=== PATIENT | female | born 1955 | race Caucasian/White ===

== ENCOUNTER 2019-02-27 15:25 | Emergency (ER) | payer MEDICAID ==
[~2019-02-27] VITALS: Ht 160 cm; Wt 109.8 kg
--- NOTE | 2019-02-27 15:35 | NUR ---
PATIENT [id number], C/O R FOOT, KNEE, AND CHEST WALL TENDERNESS, S/P TRIPPED AND FALL AT [address], -KO. ON ROOM AIR, BREATHING EVENLY AND UNLABORED, CONNECTED TO THE MONITOR AND PULSE OX. KEPT COMFORTABLE, WILL CONTINUE TO MONITOR ACCORDINGLY.
[2019-02-27] MEDS ORDERED: IBUPROFEN 600 MG TABLET PO ONE ×2 (15:44→16:00)
--- NOTE | 2019-02-27 16:50 | NUR ---
Patient discharged to home in stable condition. Written and verbal after care instructions given. Patient verbalizes understanding of instruction.
[2019-02-27 16:51] VITALS: BP 138/82
== END 2019-02-27 16:52 | disposition home or self-care (01) ==
LOC: ER 15:30
DX: M54.12 Radiculopathy, cervical region (principal); I10 Essential (primary) hypertension; M54.5 Low back pain; G89.29 Other chronic pain; W01.0XXA Fall on same level from slipping, tripping and stumbling without subsequent striking against object, initial encounter; Y93.89 Activity, other specified; Y92.481 Parking lot as the place of occurrence of the external cause; Y99.8 Other external cause status
CPT/HCPCS: 71045-TC; 72125-TC

== ENCOUNTER 2022-07-23 15:13 | Inpatient (IN) | payer MEDICAID, OTHER ==
[~2022-07-23] VITALS: Ht 167.6 cm; Wt 74.8 kg
[2022-07-23 15:59] LABS: BASOPHILS % (AUTO) 0.4 % (0.0-2.0); EOSINOPHILS % (AUTO) 1.5 % (0.0-6.0); HEMATOCRIT 41 % (33-45); HEMOGLOBIN 13.7 g/dL (11.5-14.8); LYMPHOCYTES # (AUTO) 1.5 K/uL (0.8-4.8); LYMPHOCYTES % (AUTO) 16.5 % (20.0-44.0); MEAN CORPUSCULAR HGB CONC 33 g/dl (31.0-36.0); MEAN CORPUSCULAR VOLUME 84 fL (82-100); MONOCYTES # (AUTO) 0.5 K/uL (0.1-1.30); MONOCYTES % (AUTO) 5.4 % (2.0-12.0); NEUTROPHILS % (AUTO) 76.2 % (43.0-81.0); PLATELET COUNT (AUTO) 280 K/uL (150-450); RED BLOOD CELL COUNT(AUTO) 4.88 MIL/uL (4.0-5.2); WHITE BLOOD COUNT (AUTO) 9.1 K/uL (4.3-11.0)
[2022-07-23 16:34] LABS: CALCIUM, SERUM 9.3 mg/dL (8.5-10.1); CARBON DIOXIDE 29 mmol/L (21-32); CHLORIDE 105 mmol/L (98-107); GLUCOSE 112 mg/dL (74-106); POTASSIUM 3.6 mmol/L (3.5-5.1); SODIUM SERUM 141 mmol/L (136-145); UREA NITROGEN, BLOOD 23 mg/dL (7-18)
[2022-07-23] MEDS ORDERED: DILTIAZEM HCL 50 MG IV IV ONE (17:30)
[2022-07-23] MEDS ORDERED: ASCO-352 PO (17:49)
[2022-07-23] MEDS ORDERED: ATOR10TA PO (17:49)
[2022-07-23] MEDS ORDERED: CYAN-51 PO (17:49)
[2022-07-23] MEDS ORDERED: METO-357 PO (17:49)
[2022-07-23] MEDS ORDERED: ESOM20CA37 PO (17:49)
[2022-07-23] MEDS ORDERED: CHOL100062 PO (17:49)
[2022-07-23] MEDS ORDERED: DOCU250C14 PO (17:49)
[2022-07-23] MEDS ORDERED: ASPI-1420 PO (17:49)
[2022-07-23] MEDS ORDERED: AMLO-213 PO (17:49)
[2022-07-23] MEDS ORDERED: LOSA1TAB42 PO (17:49)
[2022-07-23] MEDS ORDERED: DILTIAZEM HCL 50 MG IV ONE (17:52)
[2022-07-23] MEDS ORDERED: ASPIRIN 81 MG TAB.CHEW PO ONE (18:00)
[2022-07-23] MEDS ORDERED: FUROSEMIDE 40 MG/4 ML VIAL IV ONE (18:00)
[2022-07-23] MEDS ORDERED: DILTIAZEM HCL IV 125 MG in IV D5W 100 ML IV ONE (18:30)
[2022-07-23] MEDS ORDERED: ENOXAPARIN SODIUM 40 MG/0.4 ML DISP.SYRIN SQ SCH (22:30)
[2022-07-23] MEDS ORDERED: ONDANSETRON HCL/PF 4 MG/2 ML VIAL IVP PRN (22:30)
[2022-07-23] MEDS ORDERED: ZOLPIDEM TARTRATE 5 MG TABLET PO PRN (22:30)
[2022-07-23] MEDS ORDERED: Z GUARD REMEDY 4 OZ OINT TP PRN (22:30)
[2022-07-23] MEDS ORDERED: ACETAMINOPHEN 325 MG TABLET PO PRN (22:30)
[2022-07-23] MEDS ORDERED: MAG HYDROX/AL HYDROX/SIMETH 30 ML UDC PO PRN (22:30)
[2022-07-23] MEDS ORDERED: MAGNESIUM HYDROXIDE 30 ML UDC PO PRN (22:30)
[2022-07-23] MEDS ORDERED: HYDROCODONE/APAP 5/325MG TABLET PO PRN (22:30)
[2022-07-24] MEDS ORDERED: ENOXAPARIN SODIUM 40 MG/0.4 ML DISP.SYRIN SQ ONE (02:08)
[2022-07-24 04:08] LABS: BASOPHILS % (AUTO) 0.4 % (0.0-2.0); EOSINOPHILS % (AUTO) 2.4 % (0.0-6.0); HEMATOCRIT 39 % (33-45); HEMOGLOBIN 12.8 g/dL (11.5-14.8); LYMPHOCYTES # (AUTO) 2.8 K/uL (0.8-4.8); LYMPHOCYTES % (AUTO) 35.1 % (20.0-44.0); MEAN CORPUSCULAR HGB CONC 33 g/dl (31.0-36.0); MEAN CORPUSCULAR VOLUME 86 fL (82-100); MONOCYTES # (AUTO) 0.6 K/uL (0.1-1.30); NEUTROPHILS # (AUTO) 4.4 K/uL (1.8-8.9); NEUTROPHILS % (AUTO) 54.1 % (43.0-81.0); PLATELET COUNT (AUTO) 236 K/uL (150-450); RED BLOOD CELL COUNT(AUTO) 4.51 MIL/uL (4.0-5.2); WHITE BLOOD COUNT (AUTO) 8.1 K/uL (4.3-11.0)
[2022-07-24 04:17] LABS: CALCIUM, SERUM 9.3 mg/dL (8.5-10.1); CREATININE 1.1 mg/dL (0.6-1.3); MAGNESIUM 1.7 mg/dL (1.8-2.4); PHOSPHORUS 4.9 mg/dL (2.5-4.9); POTASSIUM 3.8 mmol/L (3.5-5.1)
[2022-07-24 04:27] LABS: THYROID STIMULATING HORMONE 2.653 uIU/mL (0.358-3.74)
[2022-07-24] MEDS ORDERED: DOCUSATE SODIUM 250 MG CAPSULE PO PRN (09:00)
[2022-07-24] MEDS ORDERED: ASPIRIN 81 MG TAB.CHEW PO SCH (09:00)
[2022-07-24] MEDS ORDERED: METOPROLOL SUCCINATE 50 MG TAB.SR.24H PO SCH (09:00)
[2022-07-24] MEDS: AMLODIPINE BESYLATE 10 MG TABLET PO SCH (09:37)
[2022-07-24] MEDS: PANTOPRAZOLE 40 MG TABLET.DR PO SCH (09:37)
[2022-07-24] MEDS: ASPIRIN EC 81 MG TABLET.DR PO SCH (09:38)
[2022-07-24] MEDS: ASCORBIC ACID 500 MG TABLET PO SCH (09:38)
[2022-07-24] MEDS ORDERED: MAGNESIUM OXIDE 400 MG TABLET PO ONE (11:00)
[2022-07-24] MEDS: SOTALOL HCL 80 MG TABLET PO SCH ×2 (11:24→22:13)
[2022-07-24] MEDS ORDERED: LORAZEPAM INJ 2 MG/ML VIAL IV PRN (13:30)
[2022-07-24] MEDS: APIXABAN 5 MG TABLET PO SCH ×2 (14:24→17:35)
[2022-07-24] MEDS ORDERED: ATORVASTATIN 10 MG TABLET PO SCH (18:00)
[2022-07-24 20:00] VITALS: BP 112/44
[2022-07-25] VITALS: BP 121/63
[2022-07-25 04:00] VITALS: BP 129/76
[2022-07-25] MEDS ORDERED: PANTOPRAZOLE 40 MG TABLET.DR PO SCH (07:30)
[2022-07-25 08:01] LABS: CALCIUM, SERUM 9.1 mg/dL (8.5-10.1); CREATININE 1.1 mg/dL (0.6-1.3); MAGNESIUM 1.7 mg/dL (1.8-2.4); POTASSIUM 3.3 mmol/L (3.5-5.1)
[2022-07-25] MEDS: PANTOPRAZOLE 40 MG TABLET.DR PO SCH (08:36)
[2022-07-25] MEDS: ASPIRIN EC 81 MG TABLET.DR PO SCH (08:38)
[2022-07-25] MEDS: SOTALOL HCL 80 MG TABLET PO SCH (08:38)
[2022-07-25] MEDS: AMLODIPINE BESYLATE 10 MG TABLET PO SCH (08:39)
[2022-07-25] MEDS: ASCORBIC ACID 500 MG TABLET PO SCH (08:40)
[2022-07-25] MEDS: APIXABAN 5 MG TABLET PO SCH ×2 (08:43→17:51)
[2022-07-25] MEDS ORDERED: IV NS 0.9% 1,000 ML IV PRN (09:00)
[2022-07-25] MEDS ORDERED: APIX5TAB PO (10:00)
[2022-07-25] MEDS ORDERED: SOTA80TA6 PO (10:00)
[2022-07-25] MEDS: POTASSIUM CHLORIDE 20 MEQ TAB.PRT.SR PO SCH ×2 (10:20→11:01)
[2022-07-25] MEDS: Magnesium 1GM/D5W 100ML PREMIX 100 ML IV SCH ×2 (10:21→11:01)
[2022-07-25] MEDS ORDERED: CT SWABBABLE VALVE TRANS SET 1 EA INFUS.SET MC ONE (12:23)
[2022-07-25] MEDS ORDERED: IOHEXOL-350 100 ML VIAL IV ONE (12:23)
[2022-07-25] MEDS ORDERED: IV NS 0.9% 250 ML IV ONE (12:24)
[2022-07-25] MEDS: METOPROLOL TARTRATE INJ 5 MG/5 ML AMPUL IVP PRN ×2 (12:55→13:00)
[2022-07-25] MEDS ORDERED: NITROGLYCERIN 0.4 MG/TAB BOTTLE ONE (12:58)
[2022-07-25] MEDS ORDERED: METOPROLOL TARTRATE INJ 5 MG/5 ML AMPUL ONE (12:59)
[2022-07-25] MEDS ORDERED: NITROGLYCERIN 0.4 MG/TAB BOTTLE SL ONE (13:00)
[2022-07-25 13:02] VITALS: BP 139/80
== END 2022-07-25 17:44 | disposition home or self-care (01) | DRG 201 ==
LOC: ER 15:14 → TRANSITION 07-24 00:30 → TELE-TD 07-24 06:08 → TELE1 07-24 16:55
PROVIDERS: ADMIT Student in an Organized Health Care Education/Training Program; ATTEND Internal Medicine
DX: I48.91 Unspecified atrial fibrillation (principal); E78.5 Hyperlipidemia, unspecified; E83.42 Hypomagnesemia; G89.29 Other chronic pain; I48.92 Unspecified atrial flutter; Z79.82 Long term (current) use of aspirin; I10 Essential (primary) hypertension; Z20.822 Contact with and (suspected) exposure to COVID-19
CPT/HCPCS: 36415; 71045-TC; 75574; 80048-TC; 83735-TC; 83880; 84100-TC; 84443-TC; 84484-TC; 85025-TC; 87081-TC; 93307-TC; C9803; G0378; J1650; J1940; J2060; J2405; J3475; J3490; J7050; J7060; Q9967

== ENCOUNTER 2022-10-05 19:42 | Inpatient (IN) | payer OTHER ==
[~2022-10-05] VITALS: Ht 160 cm; Wt 105.2 kg
[~2022-10-05 19:42] MED LIST: AMLO-213 PO; APIX5TAB PO; ASCO-352 PO; ASPI-1420 PO; ATOR10TA PO; CHOL100062 PO; CYAN-51 PO; DOCU250C14 PO; ESOM20CA37 PO; LOSA1TAB42 PO; METO-357 PO; SOTA80TA6 PO
--- NOTE | 2022-10-05 20:21 | NUR ---
SALINE LOCK ESTABLISHED, BLOOD DRAWN AND SENT TO LAB
--- NOTE | 2022-10-05 20:21 | NUR ---
Robles sosa in [facility] - 10/05/22 at 2021 by MIKE COVID SWAB DONE AND SENT TO LAB
[2022-10-05 20:26] LABS: BASOPHILS % (AUTO) 0.6 % (0.0-2.0); EOSINOPHILS % (AUTO) 2.3 % (0.0-6.0); HEMATOCRIT 40 % (33-45); LYMPHOCYTES # (AUTO) 2.2 K/uL (0.8-4.8); LYMPHOCYTES % (AUTO) 26.8 % (20.0-44.0); MEAN CORPUSCULAR HGB CONC 33 g/dl (31.0-36.0); MEAN CORPUSCULAR VOLUME 85 fL (82-100); MONOCYTES # (AUTO) 0.6 K/uL (0.1-1.30); MONOCYTES % (AUTO) 6.8 % (2.0-12.0); NEUTROPHILS # (AUTO) 5.1 K/uL (1.8-8.9); NEUTROPHILS % (AUTO) 63.5 % (43.0-81.0); PLATELET COUNT (AUTO) 251 K/uL (150-450); RED BLOOD CELL COUNT(AUTO) 4.63 MIL/uL (4.0-5.2); WHITE BLOOD COUNT (AUTO) 8.1 K/uL (4.3-11.0)
[2022-10-05 20:43] LABS: MAGNESIUM 1.3 mg/dL (1.8-2.4)
[2022-10-05 20:46] LABS: CALCIUM, SERUM 9.3 mg/dL (8.5-10.1)
[2022-10-05] MEDS ORDERED: DILTIAZEM HCL 25 MG IV IV ONE (21:00)
[2022-10-05] MEDS ORDERED: DILTIAZEM HCL 25 MG IV ONE (21:01)
[2022-10-05 21:08] LABS: THYROID STIMULATING HORMONE 1.681 uIU/mL (0.358-3.74)
--- NOTE | 2022-10-05 21:42 | NUR ---
[place] [phone]
--- NOTE | 2022-10-05 21:53 | NUR ---
room 306-1
[2022-10-05] MEDS ORDERED: DILTIAZEM HCL 50 MG IV IV ONE (22:00)
[2022-10-05] MEDS ORDERED: DILTIAZEM HCL IV 125 MG in IV NS 0.9% 100 ML IV PRN ×2 (22:30→23:30)
[2022-10-05] MEDS ORDERED: ASPIRIN 81 MG TAB.CHEW PO ONE (23:00)
[2022-10-05] MEDS ORDERED: ACETAMINOPHEN 325 MG TABLET PO PRN (23:30)
[2022-10-05] MEDS ORDERED: MAGNESIUM HYDROXIDE 30 ML UDC PO PRN (23:30)
[2022-10-05] MEDS ORDERED: IV 1/2NS 1000 ML 1,000 ML IV PRN (23:30)
[2022-10-05] MEDS ORDERED: ONDANSETRON HCL/PF 4 MG/2 ML VIAL IVP PRN (23:30)
[2022-10-05] MEDS ORDERED: DOCUSATE SODIUM 250 MG CAPSULE PO PRN (23:30)
[2022-10-05] MEDS ORDERED: Z GUARD REMEDY 4 OZ OINT TP PRN (23:30)
--- NOTE | 2022-10-05 23:42 | NUR ---
ATTEMPTED TO GIVE REPORT. PER NURSE, WILL CLARIFY ADMIT ORDER (TELE-TD)
--- NOTE | 2022-10-05 23:54 | NUR ---
REPORT GIVEN TO CARLEE MENDOZA FOR DEEPAK
[2022-10-06 00:28] VITALS: BP 113/67
--- NOTE | 2022-10-06 00:45 | NUR ---
RIGHT OF WAY WORKERMILK HAULER NOTES - RECEIVED PATIENT FROM ED AT 0028 VIA GURNEY UNDER THE CARE OF JONAH KEITH NP WITH DX OF [place]. PATIENT IS A/O X4. ECUADOREAN AND SERBIAN SPEAKING, UNDERSTANDS SOME SERBIAN. 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 PER ER RECORDS, PATIENT HAD PALPITATIONS 2 HOURS SENIOR CONTRACTS MANAGER AND GENERALIZED WEAKNESS. SHE DENIES CHEST PAIN, NAUSEA, VOMITING AND PALPITATIONS AT THIS TIME. BREATHING IS EVEN AND NON-LABORED ON ROOM AIR. HAS RIGHT ANTECUBITAL IV ACCESS #20G AND SALINE LOCKED. NO S/S OF INFILTRATION NOTED. VITAL SIGNS TAKEN AND PHYSICAL ASSESSMENT DONE. NO SKIN ISSUES AND WOUNDS NOTED. ALL BELONGINGS ACCOUNTED FOR. CONNECTED PATIENT TO TELE MONITOR BOX. AMBULATORY WITH SBA, SHE USES CANE AT HOME. NON-PITTING BILATERAL LEGS AND ANKLES EDEMA NOTED. INDEPENDENT WITH ADLS. SAFETY PRECAUTIONS IN PLACE: BED LOCKED AND IN LOW POSITION, SIDE RAILS UP X2, CALL LIGHT WITHIN REACH. WILL CONTINUE PLAN OF CARE.
[2022-10-06] MEDS: Magnesium 1GM/D5W 100ML PREMIX 100 ML IV SCH ×4 (00:57→04:20)
[2022-10-06] MEDS ORDERED: Magnesium 1GM/D5W 100ML PREMIX 200 ML IV ONE (03:17)
[2022-10-06 04:00] VITALS: BP 111/55
[2022-10-06 06:07] LABS: BASOPHILS # (AUTO) 0.1 K/uL (0.0-0.2); BASOPHILS % (AUTO) 0.8 % (0.0-2.0); EOSINOPHILS % (AUTO) 3.3 % (0.0-6.0); HEMATOCRIT 35 % (33-45); HEMOGLOBIN 11.5 g/dL (11.5-14.8); LYMPHOCYTES # (AUTO) 2.7 K/uL (0.8-4.8); LYMPHOCYTES % (AUTO) 39.7 % (20.0-44.0); MEAN CORPUSCULAR HGB CONC 33 g/dl (31.0-36.0); MEAN CORPUSCULAR VOLUME 87 fL (82-100); MONOCYTES # (AUTO) 0.4 K/uL (0.1-1.30); MONOCYTES % (AUTO) 6.2 % (2.0-12.0); NEUTROPHILS # (AUTO) 3.4 K/uL (1.8-8.9); PLATELET COUNT (AUTO) 219 K/uL (150-450); RED BLOOD CELL COUNT(AUTO) 4.02 MIL/uL (4.0-5.2); WHITE BLOOD COUNT (AUTO) 6.7 K/uL (4.3-11.0)
[2022-10-06 06:45] LABS: ALBUMIN 3.1 g/dL (3.4-5.0); BILIRUBIN,TOTAL 0.7 mg/dL (0.2-1.0); CALCIUM, SERUM 9.2 mg/dL (8.5-10.1); CREATININE 0.9 mg/dL (0.6-1.3); MAGNESIUM 2.8 mg/dL (1.8-2.4); PHOSPHORUS 3.7 mg/dL (2.5-4.9); POTASSIUM 2.9 mmol/L (3.5-5.1)
--- NOTE | 2022-10-06 06:45 | NUR ---
HEAVY EQUIPMENT ENGINE MECHANIC CLOSING NOTES - PATIENT RESTING IN BED, ABLE TO VERBALIZE NEEDS. NO SOB OR NOTED. NO ACUTE DISTRESS THROUGHOUT THE NIGHT. AFEBRILE. NO C/O CHEST PAIN OR PALPITATIONS. ON TELE MONITOR READING SINUS BRADYCARDIA WITH OCCASIONAL PAC AND PVC AT 58 BPM. RIGHT ANTECUBITAL IV ACCESS WITH 0.45% NS RUNNING AT 75 ML/HR. INTACT, PATENT AND FLUSHING. ALL DUE MEDS GIVEN AND NEEDS ATTENDED. SAFETY PRECAUTIONS MAINTAINED. WILL ENDORSE TO NEXT SHIFT FOR DEEPAK.
--- NOTE | 2022-10-06 06:55 | NUR ---
RECEIVED CALL FROM LAB CRITICAL TROPONIN 139, TRENDING UP. ENDORSED TO KELLY PARKS. Addendum: 10/06/22 at 0711 by October MARIBEL MENDOZA REPORTED TO HOSPITALIST JONAH KEITH. KELLY PARKS WILL FOLLOW-UP.
--- NOTE | 2022-10-06 07:25 | NUR ---
COTTON CLASSER AIDE OPENING NOTES PATIENT RECEIVED AWAKE IN BED IN NO ACUTE SIGNS OF DISTRESS. A/O X 4, [place] SPEAKING, DENIES PAIN OR ANY DISCOMFORTS AT THIS TIME. ON RA, TOLERATING WELL, BREATHING EVEN AND UNLABORED. ON TELE MONITOR WITH CURRENT READING OF SB, HR 56, NO C/O CARDIAC DISTRESS VOICED AT THIS TIME. IV ACCESS ON RAC #20G INTACT WITH IVF OF 1/2 NS @ 75ML/HR INFUSING WELL, NO S/S OF INFILTRATION AT SITE NOTED. SAFETY MEASURES IN PLACE: CALL LIGHT WITHIN REACH, SIDE RAILS UP X 2, BED LOCKED IN LOWEST POSITION, BED ALARM ON. WILL CONTINUE TO MONITOR PATIENT PT ACCORDINGLY.
[2022-10-06 08:00] VITALS: BP 112/64
--- NOTE | 2022-10-06 08:55 | NUR ---
RN NOTES PATIENT ELIQUIS 5 MG WAS OPEN ALREADY BUT PATIENT REFUSED, MEDICATION WAS WAISTED AND WITNESSED BY RN KAM. ALL MORNING BP MEDICATIONS WAS REFUSED BY PATIENT DUE TP BP IS 112/64 AND PULSE IS 50.
[2022-10-06] MEDS ORDERED: LOSARTAN POTASSIUM 50 MG TABLET PO SCH (09:00)
[2022-10-06] MEDS ORDERED: ASCORBIC ACID 500 MG TABLET PO SCH (09:00)
[2022-10-06] MEDS ORDERED: HYDROCHLOROTHIAZIDE 25 MG TABLET PO SCH (09:00)
[2022-10-06] MEDS ORDERED: SOTALOL AF 80 MG TABLET PO SCH (09:00)
[2022-10-06] MEDS ORDERED: APIXABAN 5 MG TABLET PO SCH (09:00)
[2022-10-06] MEDS ORDERED: AMLODIPINE BESYLATE 10 MG TABLET PO SCH (09:00)
[2022-10-06] MEDS ORDERED: ASPIRIN EC 81 MG TABLET.DR PO SCH (09:00)
[2022-10-06] MEDS ORDERED: METOPROLOL SUCCINATE 50 MG TAB.SR.24H PO SCH (09:00)
[2022-10-06] MEDS ORDERED: CYANOCOBALAMIN 500 MCG TABLET PO SCH (09:00)
[2022-10-06] MEDS ORDERED: CHOLECALCIFEROL 1,000 UNIT TABLET (VIT D3) PO SCH (09:00)
--- NOTE | 2022-10-06 09:04 | NUR ---
RN NOTES DR WHITTAKER INFORMED OF PT'S CRITICAL HIGH TROPONIN 139 THIS MORNING FROM [address] WHITTAKER ACKNOWLEDGED WITH NO NEW ORDER MADE.
[2022-10-06] MEDS ORDERED: DILT120T2 PO (10:56)
[2022-10-06] MEDS ORDERED: RIVA10TA PO (11:03)
[2022-10-06] MEDS: POTASSIUM CHLORIDE 20 MEQ TAB.PRT.SR PO SCH ×3 (11:08→13:43)
[2022-10-06 12:00] VITALS: BP 118/74
--- NOTE | 2022-10-06 14:46 | NUR ---
RN DISCHARGED NOTES PT DISCHARGED HOME IN STABLE CONDITION. A/O X4. ABLE TO MAKE NEEDS KNOWN. V/S TAKEN, STABLE AND RECORDED. NO SKIN ISSUES NOTED. ALL BELONGINGS ACCOUNTED FOR AND PT's GRAND DAUGHTER IRVING SIGNED BELONGINGS LIST. IV ACCES ON RAC G#20 REMOVED WITH NO ACTIVE BLEEDING NOTED, DRY DRESSING APPLIED AT SITE. HEALTH TEACHINGS/DISCHARGED INSTRUCTIONS GIVEN TO PT AND FAMILY THOROUGHLY ESPECIALLY HOME MEDICATIONS AND F/U WITH MD'S, ALL VERBALIZED UNDERSTANDING. PT LEFT UNIT @1405 VIA WHEELCHAIR ACCOMPANIED BY MALORIE VILLATORO AND FAMILY. MD AND CHARGE NURSE AWARE OF D/C.
[2022-10-06] MEDS ORDERED: ATORVASTATIN 10 MG TABLET PO SCH (18:00)
[2022-10-07] MEDS ORDERED: RIVAROXABAN 10 MG TABLET PO SCH (09:00)
[2022-10-07] MEDS ORDERED: DILTIAZEM HCL CD 240 MG PO SCH (09:00)
== END 2022-10-06 14:05 | disposition home or self-care (01) | DRG 201 ==
LOC: ER 19:49 → TELE 23:03
PROVIDERS: ADMIT Nurse Practitioner Family; ATTEND Nurse Practitioner Family
DX: I48.92 Unspecified atrial flutter (principal); I21.A1 Myocardial infarction type 2; E83.42 Hypomagnesemia; E78.5 Hyperlipidemia, unspecified; G89.29 Other chronic pain; M54.50 Low back pain, unspecified; Z87.891 Personal history of nicotine dependence; Z79.01 Long term (current) use of anticoagulants; I25.10 Atherosclerotic heart disease of native coronary artery without angina pectoris; I25.84 Coronary atherosclerosis due to calcified coronary lesion; R79.89 Other specified abnormal findings of blood chemistry; I10 Essential (primary) hypertension; E87.6 Hypokalemia; I48.91 Unspecified atrial fibrillation
CPT/HCPCS: 36415; 71045-TC; 80048-TC; 80053-TC; 80061-TC; 83735-TC; 84100-TC; 84443-TC; 84484-TC; 85025-TC; 87081-TC; G0378; J3475; J3490